=== PATIENT | male | born 1960 | race Caucasian/White ===

== ENCOUNTER 2018-06-27 07:40 | Emergency (ER) | payer BC ==
[2018-06-27 07:55] VITALS: BP 135/85
--- NOTE | 2018-06-27 08:24 | UC ---
Lower Extremity/Ankle HPI - HPI Summary HPI Summary: 58 yo with history of gout who states several days ago started having pain and swelling on his right big toe, just like in previous flare ups. Denies chills or fever, denies pain in adjacent soft tissue, can ambulate but has some tenderness. Denies flank pain or history of urolithiasis. - History of Current Complaint Chief Complaint: UCLowerExtremity Stated Complaint: RIGHT FOOT COMPLAINT Time Seen by Provider: 06/27/18 08:01 Hx Obtained From: Patient Onset/Duration: Sudden Onset, Lasting Days Severity Initially: Mild Severity Currently: Mild Pain Intensity: 4 Aggravating Factor(s): Standing, Ambulation Alleviating Factor(s): Rest, Elevation - Risk Factors Gout Risk Factors: Age Over 40, Male, Hyperlipidemia DVT Risk Factors: Negative Septic Arthritis Risk Factor: Negative - Allergies/Home Medications Allergies/Adverse Reactions: Allergies Allergy/AdvReac Type Severity Reaction Status Date / Time No Known Allergies Allergy Verified 06/27/18 07:49 Home Medications: Home Medications Atorvastatin* [Lipitor*] 10 mg PO DAILY 06/27/18 [History Confirmed 06/27/18] Loratadine [Claritin] 10 mg PO DAILY 06/27/18 [History Confirmed 06/27/18] PMH/Surg Hx/FS Hx/Imm Hx Previously Healthy: Yes Endocrine History: Dyslipidemia, Other - gout Other Endocrine History: gout - Surgical History Surgical History: None - Family History Known Family History: Positive: None Negative: Cardiac Disease, Hypertension, Diabetes - Social History Alcohol Use: Occasionally Substance Use Type: None Smoking Status (MU): Never Smoked Tobacco Review of Systems Constitutional: Negative Skin: Negative Musculoskeletal: Arthralgia All Other Systems Reviewed And Are Negative: Yes Physical Exam Triage Information Reviewed: Yes Appearance: Well-Appearing, No Pain Distress, Well-Nourished Vital Signs: Initial Vital Signs Temp 97.7 F 06/27/18 07:50 Pulse 68 06/27/18 07:50 Resp 14 06/27/18 07:50 BP 135/85 06/27/18 07:50 Pulse Ox 100 06/27/18 07:50 Vital Signs Reviewed: Yes Eyes: Positive: Conjunctiva Clear ENT: Positive: Hearing grossly normal Neck: Positive: Supple Respiratory: Positive: Chest non-tender, Lungs clear, Normal breath sounds, No respiratory distress Cardiovascular: Positive: RRR, No Murmur, Pulses Normal, Brisk Capillary Refill Abdomen Description: Positive: Nontender Musculoskeletal: Positive: Strength Intact, Edema @ - edema, erythema and tenderness on right first MP joint. Medial callus. Skin is intact. ROM intact Neurological: Positive: Alert, Muscle Tone Normal Lower Extremity Course/Dx - Course Course Of Treatment: patient with past history of gout whose last flare up was in 2016. Start indocid as prescribed, discontinue as soon as pain and inflammation subside. Follow up with PCP for uric acid levels and CPE> - Differential Dx/Diagnosis Provider Diagnoses: Gout Discharge - Sign-Out/Discharge Documenting (check all that apply): Patient Departure All imaging exams completed and their final reports reviewed: No Studies - Discharge Plan Condition: Stable Disposition: HOME Prescriptions: Indomethacin CAP* [Indocin CAP*] 50 mg PO TID PRN #30 cap PRN Reason: Pain Patient Education Materials: Gout (ED), Indomethacin (By mouth) Referrals: Yayo Summers DO [Primary Care Provider] - Additional Instructions: only take medication for pain. Taper after inflammation and pain have subsided. Take medicaton with food. Maintain good hydration with fluids. - Billing Disposition and Condition Condition: STABLE Disposition: Home
== END 2018-06-27 08:24 | disposition home or self-care (01) ==
LOC: UCCORT 07:40
DX: M10.9 Gout, unspecified (principal); E78.5 Hyperlipidemia, unspecified
CPT/HCPCS: 99212; G0463

== ENCOUNTER 2019-06-11 09:34 | Emergency (ER) | payer BC ==
--- OUTSIDE RECORDS SUMMARY | 2019-06-11 09:45 | XMS REPORT | Continuity of Care Document ---
:1960 External Reference #:[id number] Author Name Anabelle Mcnulty NP Address [address] [place] [address] Care Team Providers Name Role Phone Андрей Hill D.O. 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 Primary Care Physician Unavailable Payers Date Identification Numbers Payment Provider Subscriber Policy Number: [id number] [employer] Rubin Koo PayID: [id number] [address] [address] [place] [address] Problems Active Problems Provider Date Sterilization Rc Calderón MD Onset: 01/02/2012 Family history of prostate cancer Rc Calderón MD Onset: 01/02/2012 Vasectomy Anabelle Mcnulty NP Onset: 04/15/2013 Benign prostatic hypertrophy with outflow Rc Calderón MD Onset: 05/08 obstruction Impotence of organic origin Rc Calderón MD Onset: 05/08/2017 Family History Date Family Member(s) Observation Comments Father Prostate Cancer Age 76 Free Text Denies Bladder, Kidney Cancer. No family history of kidney stones. 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 Tobacco Use Reviewed: 05/08/17 Never Smoked Cigarettes Smoking Status Reviewed: 05/25/19 Never Smoked Cigarettes Tobacco Use Start: Unknown Never Smoked A Pipe ETOH Use Occasionally consumes beer Allergies, Adverse Reactions, Alerts Active Allergies Reaction Severity Comments Date NKDA 01/02/2012 Seasonal 01/02/2012 Medications Active Medications SIG Qnty Indications Ordering Provider Date Cialis use 1 tab as 18tabs N40.1 [facility] 05/25/2019 20mg Tablets needed as will Hand MD Tamsulosin HCL 1 by mouth with 90caps Z80.42 [facility] 05/25/2019 0.4mg largest meal Peace, Capsules daily Aspirin Daily Unknown 81mg Atorvastatin Calcium Yayo Summers, D.O. 10mg Tablets Claritin 1 by mouth every Unknown 10mg Tablets day History Medications Cialis 1 by mouth 30tabs N40.1 Rc Harley 05/08/2017 - 5mg Tablets every day MD Stephane 05/25/2019 Lipitor every day Unknown - 10mg Tablets 04/25/2015 [facility] 12 Hour prn Unknown - Allergy & Congestion 05/29/2018 60-120mg Tablets ER 12HR Vital Signs Date Vital Result Comment 05/25/2019 8:42am Height 72 inches 6'0" Weight 189.00 lb Weight 85.730 kg BMI (Body Mass Index) 25.6 kg/m2 BP Systolic 180 mmHg BP Diastolic 84 mmHg Heart Rate 62 /min Post Void Residual ml 0 N40.1, Bladder Scanner 05/29/2018 1:45pm Height 72 inches 6'0" Weight 189.00 lb Weight 85.730 kg BMI (Body Mass Index) 25.6 kg/m2 BP Systolic 144 mmHg BP Diastolic 79 mmHg Heart Rate 66 /min Post Void Residual ml 0 N40.1, Bladder Scanner 05/08/2017 8:37am Height 72 inches 6'0" Weight 186.00 lb Weight 84.370 kg BMI (Body Mass Index) 25.2 kg/m2 BP Systolic 134 mmHg BP Diastolic 89 mmHg Heart Rate 67 /min 05/07/2016 9:44am Height 72 inches 6'0" Weight 185.00 lb Weight 83.916 kg BMI (Body Mass Index) 25.1 kg/m2 BP Systolic 162 mmHg whitecoat syndrome BP Diastolic 82 mmHg whitecoat syndrome Heart Rate 61 /min 04/25/2015 3:15pm Height 71.5 inches 5'11.50" Weight 185.00 lb Weight 83.916 kg BMI (Body Mass Index) 25.4 kg/m2 BP Systolic 137 mmHg BP Diastolic 88 mmHg Heart Rate 74 /min 04/21/2014 2:02pm Height 71.50 inches 5'11.50" Weight 193.00 lb Weight 87.545 kg BMI (Body Mass Index) 26.5 kg/m2 BP Systolic 133 mmHg BP Diastolic 82 mmHg Heart Rate 65 /min 04/15/2013 8:21am Height 71.5 inches 5'11.50" Weight 192.00 lb Weight 87.091 kg BMI (Body Mass Index) 26.4 kg/m2 BP Systolic 132 mmHg BP Diastolic 88 mmHg 01/02/2012 4:09pm BP Systolic 150 mmHg BP Diastolic 90 mmHg 01/02/2012 4:07pm Height 71.50 inches 5'11.50" Weight 192.00 lb Weight 87.091 kg BMI (Body Mass Index) 26.4 kg/m2 Results Test Date Facility Test Result H/L Range Note Laboratory test 05/25/2019 [facility] Urine Culture <pending> finding [place] [id number] [phone] 230 Ua Routine 05/25/2019 [facility] Ua Glucose Negative REF TO DR ADDRESS ON ORDER FOR (315)- - Ua Protein Negative Ua Nitrite Negative Ua Leuko Trace * Ua Blood Trace-intact * Ua Color Not Entered Ua Ketones Negative Ua Clarity Not Entered Ua Specific [place] 1.010 1.003-1.030 Ua PH 7.0 5.0-7.5 Ua Bilirubin Negative Ua Urobilinogen 0.2 E.U./dL 0.0-1.0 Laboratory test finding 05/19/2019 Outside Facility PSA 1.0 (315)- - PSA Free 0.3 230 Ua Routine 05/29/2018 [facility] Ua Glucose Negative REF TO DR ADDRESS ON ORDER FOR (315)- - Ua Protein Negative Ua Nitrite Negative Ua Leuko Negative Ua Blood Negative Ua Color Not Entered Ua Ketones Negative Ua Clarity Not Entered Ua Specific [place] 1.010 1.003-1.030 Ua PH 6.0 5.0-7.5 Ua Bilirubin Negative Ua Urobilinogen 0.2 E.U./dL 0.0-1.0 Laboratory test finding 05/22/2018 Outside Facility PSA Total 1.150 (315)- - 230 Ua Routine 05/08/2017 [facility] Ua Glucose Negative REF TO DR ADDRESS ON ORDER FOR (315)- - Ua Protein Negative Ua Nitrite Negative Ua Leuko Negative Ua Blood Negative Ua Color Not Entered Ua Ketones Negative Ua Clarity Not Entered Ua Specifici [place] 1.015 1.003-1.030 Ua PH 7.5 5.0-7.5 Ua Bilirubin Negative Ua Urobilinogen 0.2 E.U./dL 0.0-1.0 Laboratory test finding 05/01/2017 Outside Facility PSA Total 1.2 (315)- - 230 Ua Routine 05/07/2016 [facility] Inhouse Lab Ua Glucose Negative REF TO DR ADDRESS ON ORDER FOR (315)- - Ua Protein Negative Ua Nitrite Negative Ua Leuko Negative Ua Blood Negative Ua Color Not Entered Ua Ketones Negative Ua Clarity Not Entered Ua Specifici [place] <=1.005 1.003-1.030 Ua PH 6.5 5.0-7.5 Ua Bilirubin Negative Ua Urobilinogen 0.2 E.U./dL 0.0-1.0 Laboratory test finding 04/17/2016 Outside Facility PSA Total 0.9 (315)- - #Ua Routine 04/25/2015 [facility] Ua Glucose Negative REF TO DR ADDRESS ON ORDER FOR (315)- - Ua Protein Negative Ua Nitrite Negative Ua Leuko Negative Ua Blood Negative Ua Color Not Entered Ua Ketones Negative Ua Clarity Not Entered Ua Specific [place] 1.010 1.003-1.030 Ua PH 7.0 5.0-7.5 Ua Bilirubin Negative Ua Urobilinogen 0.2 E.U./dL 0.0-1.0 Laboratory test finding 04/18/2015 Outside Facility PSA Total 1.1 (315)- - PSA Free 0.4 PSA Free % 36 #Ua Routine 04/21/2014 [facility] Ua Glucose Negative REF TO DR ADDRESS ON ORDER FOR (315)- - Ua Protein Negative Ua Nitrite Negative Ua Leuko Negative Ua Blood Negative Ua Color Not Entered Ua Ketones Negative Ua Clarity Not Entered Ua Specific [place] 1.010 1.003-1.030 Ua PH 5.5 5.0-7.5 Ua Bilirubin Negative Ua Urobilinogen 0.2 E.U./dL 0.0-1.0 Laboratory test finding 04/13/2014 Outside Facility PSA Total 0.8 (315)- - #Ua Routine 04/15/2013 [facility] Lab Ua Glucose Negative REF TO DR ADDRESS ON ORDER FOR (315)- - Ua Protein Negative Ua Nitrite Negative Ua Leuko Negative Ua Blood Negative Ua Color Not Entered Ua Ketones Negative Ua Clarity Not Entered Ua Specific [place] 1.020 Ua PH 7.0 Ua Bilirubin Negative Ua Urobilinogen 0.2 E.U./dL Laboratory test finding 04/05/2013 Outside Facility PSA Total 0.9 (315)- - #Ua Routine 01/02/2012 [facility] Ua Glucose Negative REF TO DR ADDRESS ON ORDER FOR (315)- - Ua Protein Negative Ua Nitrite Negative Ua Leuko Negative Ua Blood Negative Ua Color Not Entered Ua Ketones Trace * Ua Clarity Not Entered Ua Specific [place] 1.025 Ua PH 6.0 Ua Bilirubin Negative Ua Urobilinogen 0.2 E.U./dL BUN + Creatinine 03/19/2011 Outside Facility BUN - Urea Nitrogen 17 (315)- - Creatinine 1.1 Laboratory test finding 03/19/2011 Outside Facility PSA Total 0.86 (315)- - Procedures Date Code Description Status 05/25/2019 55314 Bladder Scan, Post Voiding Residual Urine Completed 05/29/2018 87633 Bladder Scan, Post Voiding Residual Urine Completed 04/25/2015 09977733 Colonoscopy Completed Encounters Type Date Location Provider Dx Diagnosis Office Visit 05/25/2019 [facility]/ Anabelle Mcnulty, Z80.42 Family history of 8:45a [facility] [employer] malignant neoplasm of prostate N40.1 Benign prostatic hyperplasia with lower urinary tract symp N52.9 Male erectile dysfunction, unspecified R31.29 Other microscopic hematuria R39.12 Poor urinary stream Office Visit 05/29/2018 1:45p [facility] Anabelle Zheng N40.1 Benign prostatic [facility]/ Luis Mcnulty NP hyperplasia with Urology lower urinary tract symp R35.1 Nocturia N52.9 Male erectile dysfunction, unspecified Z80.42 Family history of malignant neoplasm of prostate Office Visit 05/08/2017 8:30a [facility] Petra Harley N40.1 Benign prostatic Patel/ Luis Calderón MD hyperplasia with Urology lower urinary tract symp R35.1 Nocturia N52.9 Male erectile dysfunction, unspecified Z80.42 Family history of malignant neoplasm of prostate Office Visit 05/07/2016 9:45a [facility] Anabelle Zheng Z80.42 Family history of Patel/ A.M.P. Mcnulty, [employer]MA[employer] MECHANIC malignant Urology neoplasm of prostate N40.1 Enlarged prostate with lower urinary tract symptoms R35.1 Nocturia Office Visit 04/25/2015 2:45p [place] Rc Harley V16.[address]/ Marce.MRafael Calderón MD Malignant Urology Neoplasm Prostate Office Visit 04/21/2014 2:00p [facility] Anabelle Mcnulty, V16.42 Family History Urology [employer] MECHANIC Malignant Neoplasm Prostate Office Visit 04/15/2013 8:15a [facility] Anabelle Mcnulty V16.42 Family History Urology [employer]MA[employer] MECHANIC Malignant Neoplasm Prostate V26.52 Vasectomy Status Office Visit 01/02/2012 4:00p [facility] Rc Cricket v25.2 Sterilization MD Stephane v16.42 Family History Malignant Neoplasm Prostate Plan of Treatment Future Appointment(s):05/25/2020 10:45 am - Anabelle Mcnulty NP at [facility] / YaelMRafael Jyrtvdh3705/25/2019 - Anabelle Mcnulty NPZ80.42 Family history of malignant neoplasm of prostateNew Medication:Tamsulosin HCL 0.4 mg - 1 by mouth with largest meal dailyNew Labs:PSA Total, Ordered: 05/25/19Comments:He understands the importance of a yearly PSA and digital rectal exam due to his family history.Follow up:1 year with PSA, ERENDIRA and uroflow and bladder scanN40.1 Benign prostatic hyperplasia with lower urinary tract symptoNew Medication: Cialis 20 mg - use 1 tab as needed as directedComments:His prostate exam is not suspicious. His PSA is stable and low. He is adequately emptying his bladder. Continue yearly follow-up.N52.9 Male erectile dysfunction, unspecifiedComments: He reports low dose daily Cialis is no longer effective. We discussed stopping the low dose daily Cialis and start him on the higher dose. I will discontinue the daily dose and started him on Cialis 20mg 1 tablet one hour prior to intercourse. I have reviewed the side effects, benefits treatment. He is aware to call for an erection lasting greater than 4 hours. I have electronically submitted a prescription to his pharmacy.R31.29 Other microscopic hematuriaComments:He has trace leukocytes and trace blood on UA. This is a new finding. I will send a urine culture torule out infection. A microscopic urinalysis will be obtained. He is aware if there is no infection and he has greater than 2 RBCs per high-power field further evaluation with CT urogram and cystoscopywill be warranted. I will contact him with the results of further evaluation is needed.R39.12 Poor urinary streamComments:He reports a slow stream. We are stopping low-dose daily Cialis. I will start him on tamsulosin 0.4 mg daily to be taken 30 minutes after his largest meal. I have reviewed the common side effects and benefits of treatment. I've cautioned him against orthostatic hypotension, dizziness, nasal congestionand retrograde ejaculation. He is agreeable to a trial. I've electronically similar to prescription to his pharmacy. He will return in 1 year with uroflow and bladder scan.
[2019-06-11 09:54] VITALS: BP 152/74
--- NOTE | 2019-06-11 10:14 | UC ---
Skin Complaint HPI - HPI Summary HPI Summary: Pt c/o sudden onset right great toe pain and swelling. Pt has hx of gout and thinks he is having another flare up. Pt was on vacation last weekend and had beer and seafood. - History of Current Complaint Chief Complaint: UCLowerExtremity Time Seen by Provider: 06/11/19 10:11 Stated Complaint: RT FOOT COMPLAINT Hx Obtained From: Patient Onset/Duration: Sudden Onset, Lasting Days, Still Present Skin Exposure Onset/Duration: Days Ago Timing: Constant Onset Severity: Mild Current Severity: Mild Pain Intensity: 2 Location: Discrete - right great toe Character: Swelling, Pain Aggravating Factor(s): Touch Alleviating Factor(s): Nothing Associated Signs & Symptoms: Positive: Negative - Allergy/Home Medications Allergies/Adverse Reactions: Allergies Allergy/AdvReac Type Severity Reaction Status Date / Time No Known Allergies Allergy Verified 06/11/19 09:52 Home Medications: Home Medications Tamsulosin CAP* [Flomax CAP*] 1 tab PO DAILY 06/11/19 [History Confirmed ] PMH/Surg Hx/FS Hx/Imm Hx Previously Healthy: Yes Endocrine History: Dyslipidemia Cardiovascular History: Cardiac Disease - Surgical History Surgical History: None - Family History Known Family History: Positive: None Negative: Cardiac Disease, Hypertension, Diabetes - Social History Occupation: Employed Full-time Lives: With Family Alcohol Use: Occasionally Substance Use Type: None Smoking Status (MU): Never Smoked Tobacco Have You Smoked in the Last Year: No Review of Systems All Other Systems Reviewed And Are Negative: Yes Constitutional: Positive: Negative Skin: Positive: Other - mild swelling Eyes: Positive: Negative ENT: Positive: Negative Respiratory: Positive: Negative Cardiovascular: Positive: Negative Gastrointestinal: Positive: Negative Genitourinary: Positive: Negative Motor: Positive: Decreased ROM - pain with ROM right great toe Neurovascular: Positive: Negative Musculoskeletal: Positive: Arthralgia Neurological: Positive: Negative Psychological: Positive: Negative Is Patient Immunocompromised?: No Physical Exam Triage Information Reviewed: Yes Appearance: Well-Appearing Vital Signs: Initial Vital Signs Temp 98.0 F 06/11/19 09:50 Pulse 99 06/11/19 09:50 Resp 14 06/11/19 09:50 BP 152/74 06/11/19 09:50 Pulse Ox 100 06/11/19 09:50 Vital Signs Reviewed: Yes Eye Exam: Normal ENT: Positive: Hearing grossly normal Dental Exam: Normal Neck exam: Normal Respiratory: Positive: No respiratory distress Musculoskeletal: Positive: Edema @ - mild swelling right great toe Neurological Exam: Normal Psychological Exam: Normal Skin Exam: Normal Course/Dx - Differential Diagnoses - Skin Complaint Differential Diagnoses: Cellulitis - Diagnoses Provider Diagnosis: Gout Discharge - Sign-Out/Discharge Documenting (check all that apply): Patient Departure All imaging exams completed and their final reports reviewed: No Studies - Discharge Plan Condition: Stable Disposition: HOME Prescriptions: Colchicine* [Colcrys*] 0.6 mg PO ONCE #3 tab Patient Education Materials: Low Purine Diet (ED), Gout (ED) Referrals: Yayo Summers DO [Primary Care Provider] - If Needed - Billing Disposition and Condition Condition: STABLE Disposition: Home
== END 2019-06-11 10:22 | disposition home or self-care (01) ==
LOC: UCCORT 09:34
DX: M10.9 Gout, unspecified (principal)
CPT/HCPCS: 99212; G0463